=== PATIENT | male | born 1975 | race Caucasian/White ===

== ENCOUNTER 2018-12-28 12:14 | Emergency (ER) | payer OTHER ==
[~2018-12-28] VITALS: Ht 182.9 cm; Wt 83.9 kg
--- NOTE | 2018-12-28 12:30 | NUR ---
patient [employer] and [employer], in custody, c/o lower back pain. Breathing evenly and unlabored. kept comofrtable, will continue to monitor accordingly.
[2018-12-28] MEDS ORDERED: KETOROLAC TROMETHAMINE INJ 60 MG/2 ML VIAL IM ONE (12:44)
[2018-12-28] MEDS: KETOROLAC TROMETHAMINE INJ 60 MG/2 ML VIAL IM ONE (12:50)
--- NOTE | 2018-12-28 12:52 | NUR ---
technical translator at bedside.
[2018-12-28 14:10] VITALS: BP 145/81
--- NOTE | 2018-12-28 14:11 | NUR ---
Patient discharged in custody in stable condition. Written and verbal after care instructions given. Patient verbalizes understanding of instruction.
== END 2018-12-28 14:10 ==
LOC: ER 12:18
DX: M54.5 Low back pain (principal); I10 Essential (primary) hypertension; G89.29 Other chronic pain; V00.131A Fall from skateboard, initial encounter; Y93.51 Activity, roller skating (inline) and skateboarding; Y92.89 Other specified places as the place of occurrence of the external cause; Y99.8 Other external cause status
CPT/HCPCS: 72110; 96372; 99283; J1885